=== PATIENT | female | born 1950 | race Caucasian/White ===

== ENCOUNTER 2018-04-15 09:14 | Day surgery (SDC) | payer OTHER ==
[~2018-04-15] VITALS: Ht 160 cm; Wt 68.0 kg
[~2018-04-15 09:14] MED LIST: COSOPT EYE DROP10 ML LEFT EYE; DORZOLAMIDE-TIM10 ML LEFT EYE; FOLIC ACID1 MG PO; FOSAMAX70 MG PO; METHOTREXATE2.5 MG PO; MILLIPRED5 MG PO; PRED FORTE100 DROP/5 BOTH EYES; PREDNISOLONE AC15 ML BOTH EYES; PREDNISONE5 MG PO; PROAIR HFA8.5 GM IH; QVAR REDIHALE10.6 G1 IH; XALATAN2.5 ML LEFT EYE
[2018-04-15 09:43] VITALS: BP 144/78
[2018-04-15 13:16] VITALS: BP 131/75
[2018-04-15 13:52] VITALS: BP 135/77
== END 2018-04-15 14:00 | disposition home or self-care (01) ==
LOC: SDC 09:14
PROC: 0SRM0JZ Replacement of Right Metatarsal-Phalangeal Joint with Synthetic Substitute, Open Approach (ICD-10-PCS; principal; 2018-04-15)
DX: M20.21 Hallux rigidus, right foot (principal); J45.909 Unspecified asthma, uncomplicated; D86.9 Sarcoidosis, unspecified; Z88.0 Allergy status to penicillin
CPT/HCPCS: C1776; J0690; J2405; J3010; S0020